=== PATIENT | male | born 1975 | race Asian ===

== ENCOUNTER 2024-06-16 18:14 | Emergency (ER) | payer OTHER, SELFPAY ==
[2024-06-16] VITALS (10 sets, daily range): BP systolic 130–144; BP diastolic 91–104
--- NOTE | 2024-06-16 18:53 | ED.GENMED ---
History of Present Illness
General
Chief Complaint: Chest Pain
Source: patient
Time Seen by Provider: 06/16/24 18:26
History of Present Illness
History of Present Illness:
This patient is a 48-year-old male who was just diagnosed with hypertension about a week ago. He is compliant with his new medication that he was started on. He says around 2 PM today he just darted feel like he had decreased energy. Then he
started to feel like he was developing cold symptoms. He denies fever, cough, but he describes feeling like his body was 'warm' and he felt nervous inside. He then developed a 'uncomfortable' feeling in the center of his chest, mild in intensity,
described as 'not continuous' also described as 'on and off', lasting 30 minutes to an hour. This pain was without radiation, exacerbating relieving factors. Is not pleuritic in nature. Is now fully resolved. He denies associated dyspnea, leg
swelling, abdominal pain, back pain, neck pain, headache, dizziness, jaw pain, or other complaints. He denies family history of vascular early cardiac illness.
Past History
Past History
ED Past Medical History: HTN
Social History
Tobacco: Non-smoker
Alcohol: None
Drug: None
Personal:
Living: with family
Phy Exam
Physical Exam
Physical Exam:
GENERAL: Alert , in no apparent distress
EYE: pupils equal and reactive
NECK: Supple, no significant adenopathy.
ENT: o/p clr, mmm.
CARDIAC: Regular rate and rhythm .
LUNGS: Clear breath sounds bilaterally, no acute respiratory distress, no wheezes/rales/rhonchi
ABDOMEN: Soft, without focal tenderness, no r/g, no cvat
NEUROLOGICAL: Alert and oriented, no focal neuro deficits
SKIN: Warm and dry, skin intact.
MUSCULOSKELETAL: No edema, well perfused.
PSYCH: Normal and appropriate interaction.
Scores
Heart Score for Chest Pain Patients
STEMI patient?: Not applicable
Course
Orders/Labs/Results
Orders:
Orders
06/16/24 18:16
Electrocardiogram (*1) Urgent
Reason for Study: Chest Pain
EKG- Treatment ONCE
06/16/24 18:25
Electrocardiogram (*1) Urgent
Reason for Study: Chest Pain
EKG- Treatment ONCE
06/16/24 18:52
Cardiac Monitoring- Treatment ONCE
CR Chest - 2 Views Urgent
Comment:
Reason For Exam: cp
06/16/24 18:54
COVID-19 Antigen Urgent
Source: Nasal Swab
Complete Blood Count/No Diff Urgent
Comprehensive Metabolic Panel Urgent
Troponin I Urgent
Influenza A+B Rapid Molecular Urgent
[facility] Source: Nasal Swab
Specimen Description:
06/16/24 21:24
Troponin I Urgent
Abnormal Lab Results
06/16/24
18:54
RBC 3.97 L 10^6/uL
(4.70-6.10)
Hgb 12.9 L g/dL
(13.0-18.0)
Hct 37.1 L %
(39.0-52.0)
MCH 32.5 H pg
(27.0-31.0)
RDW 11.2 L %
(11.5-14.5)
Glucose 138 H mg/dl
(70-99)
06/16/24 18:54
06/16/24 18:54
Vital Signs
Initial and Last Documented VS:
Initial Vital Signs
Temp Pulse Resp BP Pulse Ox
98.1 F 71 18 144/104 97
06/16/24 18:21 06/16/24 18:21 06/16/24 18:21 06/16/24 18:21 06/16/24 18:21
Last Documented Vital Signs
Temp Pulse Resp BP Pulse Ox
98.1 F 76 16 140/102 98
06/16/24 18:21 06/16/24 21:45 06/16/24 21:45 06/16/24 21:30 06/16/24 21:45
*Critical Care Note
Total Time (30-74mins, 75-104mins- exclusive of procedures): Not Applicable
Update Note
Update Note:
Patient presents to the Emergency Department with __chest pain and body feels warm
Number and Complexity of Problems Addressed at the Encounter
� Chronic conditions affecting care:
� Acute Exacerbation and/or Progression of Chronic Illness:
� Differential Diagnosis includes: But not limited to ACS, febrile illness, pericarditis, etc. etc.
Amount and/or Complexity of Data to be Reviewed and Analyzed
� I performed an independent evaluation of and my interpretation is:
EKG: Read by me, normal sinus rhythm, normal rate, normal axis, no acute ischemia
CT:
Xrays:cxr read by me, nad
Laboratory Studies:mild anemia, flu/covid neg, trop wnl
Other:
� Review of other/old records reveals:
� Clinical information was obtained by an independent historian:
� Prescriptions/Medications Considered but not given:
� Further testing considered but not performed:
Risk of Complications and/or Morbidity or Mortality of Patient Management
� Social determinants of health affecting care:
� Discussion with other providers (PCP, Hospitalists, Consultants, etc):
� Escalation of care including admission/observation vs risk of discharge considered:1007 PM REPEAT BP 139/94. PT SMILING, 'I FEEL GREAT!', NO SXS. W/U HERE UNREMKARABLE, BP MIN ELEVATED. D/W PT IMPORT OF FU AND REASONS OT
RTED.
ED Attending Note
-
Portions of this chart may have been created with voice recognition software.� Occasional wrong word or��sound alike� substitutions may have occurred due to the inherent limitations of voice recognition software.
Discharge Plan
Departure
Patient Disposition: Home (Routine Discharge)
Date of Disposition: 06/16/24
Time of Disposition: 22:06
Patient with high blood pressure during this ER visit?: Yes
Discharge Problem:
Chest pain
Instructions: Chest Pain PCP Follow Up, BLOOD PRESSURE
Referrals:
Saman Pimentel CRNP [Family Provider] - Follow up in 2-3 days
Activity Restrictions/Additional Instructions:
IF YOU DEVELOP RECURRENT CHEST DISCOMFORT, TROUBLE BREATHING, FEVER, CHILLS, VOMITING, DIZZINESS, OR OTHER WORRISOME SIGNS, PLEASE RETURN TO THE ER IMMEDIATELY.
Interventions
Interventions:
*Risk Screen - Suicide Last Done: 06/16/24 18:21
*General Assessment Last Done: 06/16/24 18:21
*Neglect/Abuse Screening Last Done: 06/16/24 18:21
ED- Fall Risk Assessment Last Done: 06/16/24 18:37
ED- Cardiac Assessment Last Done: 06/16/24 18:37
Discharge Date and Time
Print Language: GEORGIAN
[2024-06-16 19:05] LABS: Hematocrit 37.1 % (39.0-52.0); Hemoglobin 12.9 g/dL (13.0-18.0); Mean Corp Hgb Conc. 34.8 g/dL (33.0-37.0); Mean Corpuscular Hgb 32.5 pg (27.0-31.0); Mean Corpuscular Volume 93.5 fL (80.0-94.0); Mean Platelet Volume 9.2 fL (7.4-10.4); Platelet Count 221 10^3/uL (130-400); Red Blood Cell Count 3.97 10^6/uL (4.70-6.10); Red Cell Dist. Width 11.2 % (11.5-14.5)
[2024-06-16 19:20] LABS: COVID-19 Antigen Negative (Negative)
[2024-06-16 19:21] LABS: ALT (SGPT) 34 U/L (0-50); AST (SGOT) 27 U/L (17-59); Albumin 4.3 g/dl (3.5-5.0); Alkaline Phosphatase 89 U/L (38-126); Blood Urea Nitrogen 20 mg/dl (9-20); Carbon Dioxide 27 mmol/L (22-30); Chloride 103 mmol/L (98-107); Glucose 138 mg/dl (70-99); Potassium 4.1 mmol/L (3.5-5.1); Sodium 141 mmol/L (135-145); Total Bilirubin 0.5 mg/dl (0.2-1.3); Total Protein 7.1 g/dl (6.3-8.2); eGFR > 60.00
[2024-06-16 19:33] LABS: Troponin I < 0.012 ng/ml
[2024-06-16 21:54] LABS: Troponin I < 0.012 ng/ml
== END 2024-06-16 22:12 | disposition home or self-care (01) ==
LOC: EMR 18:14
PROVIDERS: EMERGENCY PHYSICIAN Emergency Medicine; FAMILY PHYSICIAN Nurse Practitioner Family
DX: R07.89 Other chest pain (principal); Z11.52 Encounter for screening for COVID-19; I10 Essential (primary) hypertension
CPT/HCPCS: 99284; 71046; 80053; 84484; 85027; 87502; 87811; 93005